=== PATIENT | female | born 1940 | race Caucasian/White ===

== ENCOUNTER 2016-11-06 11:32 | Emergency (ER) | payer MEDICARE ==
[~2016-11-06] VITALS: Ht 167.6 cm; Wt 85.0 kg
[~2016-11-06 11:32] MED LIST: HYDR-3288 PO; PERI8.6T PO
[2016-11-06 11:36] VITALS: BP 145/77; PULSE 84; RESP 16; TEMP 98.4; O2SAT 98
[2016-11-06 13:04] LABS: AUTOMATED NEUTROPHIL # 5.9 TH/MM3 (1.8-7.7); BASOPHIL # 0.1 TH/MM3 (0-0.2); BASOPHIL % 0.7 % (0.0-2.0); EOSINOPHIL # 0.4 TH/MM3 (0-0.4); HEMATOCRIT 42.1 % (35.0-46.0); HEMO FLAGS DIFF FINAL; LYMPH % 17.9 % (9.0-44.0); LYMPHOCYTE # 1.5 TH/MM3 (1.0-4.8); MEAN CELL VOLUME 90.1 FL (80.0-100.0); MEAN CORPUSCULAR HEMOGLOBIN 29.5 PG (27.0-34.0); MEAN CORPUSCULAR HGB CONC 32.7 % (32.0-36.0); MONO % 7.1 % (0.0-8.0); NEUT % 69.3 % (16.0-70.0); PLATELET COUNT 260 TH/MM3 (150-450); RED BLOOD COUNT 4.67 MIL/MM3 (4.00-5.30); RED CELL DISTRIBUTION WIDTH 14.3 % (11.6-17.2); WHITE BLOOD COUNT 8.5 TH/MM3 (4.0-11.0)
--- NOTE | 2016-11-06 13:08 | RADRPT ---
EXAM DATE/TIME: 11/06/2016 12:52 [facility] COMPARISON: CHEST SINGLE AP, January 19, 2016, 23:34. INDICATIONS : Right shoulder and chest pains x 4 weeks. MEDICAL HISTORY : None. SURGICAL HISTORY : None. ENCOUNTER: Initial ACUITY: 1 month PAIN SCORE: 9/10 LOCATION: Right chest FINDINGS: A single view of the chest demonstrates the lungs to be symmetrically aerated without evidence of mas s, infiltrate or effusion. The cardiomediastinal contours are unremarkable. Osseous structures are intact with mild to moderate scoliosis and mild degenerative change. CONCLUSION: No acute disease. Tony Hensley MD on November 06, 2016 at 13:06 Board Certified Radiologist. This report was verified electronically.
[2016-11-06 13:10] LABS: ANION GAP 8 MEQ/L (5-15); BICARBONATE 27.5 MEQ/L (21.0-32.0); BLOOD UREA NITROGEN 12 MG/DL (7-18); CHLORIDE 107 MEQ/L (98-107); GLOMERULAR FILTRATION RATE 75 ML/MIN (>89); POTASSIUM 3.5 MEQ/L (3.5-5.1); SODIUM (NA) 142 MEQ/L (136-145)
[2016-11-06 13:17] LABS: CREATINE KINASE 55 U/L (26-192)
--- NOTE | 2016-11-06 16:23 | RADRPT ---
EXAM DATE/TIME: 11/06/2016 16:04 [facility] COMPARISON: No previous studies available for comparison. INDICATIONS : Right shoulder pain, hurt 8 months ago. MEDICAL HISTORY : None. SURGICAL HISTORY : left shoulder surgery, torn ligament ENCOUNTER: Initial ACUITY: 1 day PAIN SCORE: 9/10 LOCATION: Right shoulder FINDINGS: Multiple view examination of the right shoulder demonstrates no evidence of fracture or dislocation. The acromioclavicular joint is maintained. There are mild degenerative changes in the glenohumeral j oint. There is normal range of motion between internal and external rotation. Bony mineralization is normal. CONCLUSION: Mild degenerative change in the glenohumeral joint. Tony Hensley MD on November 06, 2016 at 16:20 Board Certified Radiologist. This report was verified electronically.
[2016-11-06 16:24] LABS: AST (GOT) 20 U/L (15-37)
[2016-11-06 16:28] LABS: ALKALINE PHOSPHATASE 72 U/L (45-117); ALT (GPT) 19 U/L (10-53); INDIRECT BILIRUBIN 0.2 MG/DL (0.0-0.8); TOTAL BILIRUBIN ADULT 0.3 MG/DL (0.2-1.0)
[2016-11-06] MEDS ORDERED: ORPHENADRINE INJ 60 MG/2 ML AMP IM ONE (16:30)
[2016-11-06] MEDS ORDERED: KETOROLAC TROMETHAMINE 30 MG/ML (IVP) VIAL IM ONE (16:30)
[2016-11-06] MEDS ORDERED: CYCL5TAB PO (16:41)
[2016-11-06] MEDS ORDERED: MELO7.5T4 PO (16:41)
--- NOTE | 2016-11-06 16:41 | PD ---
HPI Chief Complaint: Medical Clearance Time Seen by Provider: 14:32 Travel History International Travel<30 days: No Contact w/Intl Traveler<30days: No Traveled to known affect area: No History of Present Illness HPI This is a 76-year-old female who has a history of prior torn ligament and frozen shoulder on the left side who presents to the emergency department with several weeks of increasing right shoulder pain. She says over the past several days she's been having severe pain in her right shoulder that radiates into her right chest and into her right arm, worse with movement, improved with rest. 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 She does feel like the pain is worse with movement. She denies any shortness of breath, abdominal pain or vomiting. She denies any injuries that she can recall. PFSH Past Medical History Heart Rhythm Problems: Yes (HX MURMUR) Cancer: No Cardiac Catheterization: No Cardiovascular Problems: No High Cholesterol: Yes Congestive Heart Failure: No Diabetes: No Diminished Hearing: No Endocrine: No Gastrointestinal Disorders: Yes Genitourinary: No Hypertension: No Immune Disorder: No Implanted Vascular Access Dvce: Yes Musculoskeletal: No Neurologic: Yes Psychiatric: No Reproductive: No Respiratory: No Past Surgical History Coronary Artery Bypass Graft: No Joint Replacement: No (BILATERAL KNEES) Other Surgery: Yes Social History Alcohol Use: Yes (SOCIAL) Tobacco Use: No Substance Use: No Allergies-Medications (Allergen,Severity, Reaction): Coded Allergies: acetaminophen (Unverified Allergy, Severe, VOMITING, 10/10/16) oxycodone (Unverified Allergy, Severe, VOMITING, 10/10/16) Uncoded Allergies: ANESTHETIC THAT STARTS WITH A P (Allergy, Severe, 08/08/11) Reported Meds & Prescriptions Reported Meds & Active Scripts Active Leidy-Colace (Sennosides-Docusate Sodium) 8.6-50 Mg Tab 2 Tab PO HS Silver (Hydrocodone-Acetaminophen) 7.5-325 mg Tab 1-2 Tab PO Q4H PRN Review of Systems Except as stated in HPI: all other systems reviewed are Neg Physical Exam Narrative GENERAL:Well appearing, no acute distress SKIN: Focused skin assessment warm and dry. HEAD: Atraumatic. Normocephalic. EYES: Pupils equal and round. No injection or drainage. ENT: Moist mucous membranes NECK: Trachea midline. CARDIOVASCULAR: Regular rate and rhythm. No murmur appreciated. 2+ bilateral radial pulses with normal capillary refill. RESPIRATORY: Clear to auscultation. Breath sounds equal bilaterally. GASTROINTESTINAL: Abdomen soft, non-tender, nondistended. MUSCULOSKELETAL: Some pain with Neer test and pain with internal rotation of the shoulder. NEUROLOGICAL: Awake and alert. No obvious cranial nerve deficits. Moving all extremities. PSYCHIATRIC: Appropriate mood and affect; insight and judgment normal. Data Data Last Documented VS Vital Signs Date Time Temp Pulse Resp B/P (MAP) Pulse Ox O2 Delivery O2 Flow Rate FiO2 11/06/16 11:36 98.4 84 16 145/77 (99) 98 Orders Orders Electrocardiogram (11/06/16 12:10) Complete Blood Count With Diff (11/06/16 12:16) Basic Metabolic Panel (Bmp) (11/06/16 12:16) Ckmb (Isoenzyme) Profile (11/06/16 12:16) Troponin I (11/06/16 12:16) Chest, Single Ap (11/06/16 12:16) Shoulder, Complete (>2vws) (11/06/16 ) Troponin I (11/06/16 14:49) Hepatic Functional Panel (11/06/16 14:49) Orphenadrine Inj (Norflex Inj) (11/06/16 16:30) Ketorolac Inj (Toradol Inj) (11/06/16 16:30) Labs Laboratory Tests Test 11/06/16 12:23 11/06/16 15:25 White Blood Count 8.5 TH/MM3 Red Blood Count 4.67 MIL/MM3 Hemoglobin 13.8 GM/DL Hematocrit 42.1 % Mean Corpuscular Volume 90.1 FL Mean Corpuscular Hemoglobin 29.5 PG Mean Corpuscular Hemoglobin Concent 32.7 % Red Cell Distribution Width 14.3 % Platelet Count 260 TH/MM3 Mean Platelet Volume 7.6 FL Neutrophils (%) (Auto) 69.3 % Lymphocytes (%) (Auto) 17.9 % Monocytes (%) (Auto) 7.1 % Eosinophils (%) (Auto) 5.0 % Basophils (%) (Auto) 0.7 % Neutrophils # (Auto) 5.9 TH/MM3 Lymphocytes # (Auto) 1.5 TH/MM3 Monocytes # (Auto) 0.6 TH/MM3 Eosinophils # (Auto) 0.4 TH/MM3 Basophils # (Auto) 0.1 TH/MM3 CBC Comment DIFF FINAL Differential Comment Blood Urea Nitrogen 12 MG/DL Creatinine 0.75 MG/DL Random Glucose 129 MG/DL Calcium Level 8.4 MG/DL Sodium Level 142 MEQ/L Potassium Level 3.5 MEQ/L Chloride Level 107 MEQ/L Carbon Dioxide Level 27.5 MEQ/L Anion Gap 8 MEQ/L Estimat Glomerular Filtration Rate 75 ML/MIN Total Creatine Kinase 55 U/L Troponin I LESS THAN 0.02 NG/ML LESS THAN 0.02 NG/ML Total Bilirubin 0.3 MG/DL Direct Bilirubin 0.1 MG/DL Indirect Bilirubin 0.2 MG/DL Aspartate Amino Transf (AST/SGOT) 20 U/L Alanine Aminotransferase (ALT/SGPT) 19 U/L Alkaline Phosphatase 72 U/L Total Protein 6.7 GM/DL Albumin 3.3 GM/DL MDM Medical Decision Making Medical Screen Exam Complete: Yes Emergency Medical Condition: Yes Interpretation(s) afebrile, no tachycardia, mild hypertension no leukocytosis electrolytes within normal limits troponin neg x2 lfts reassuring Last 24 hours Impressions Chest X-Ray 11/06/16 1216 Signed Impressions: Service Date/Time: Sunday, November 06, 2016 12:52 - CONCLUSION: No acute disease. Tony Hensley MD xray: degenerative change in the glenohumeral joint Differential Diagnosis Osteoarthritis, rotator cuff injury, acute coronary syndrome, choledocholithiasis Narrative Course This is a 76 year old female who presents to the emergency department with pain in her right shoulder. The pain is worse with movement and with rotator cuff testing. It appears to be musculoskeletal. She has a normal neurovascular exam. X-ray of the chest and shoulder are reassuring with some evidence of degenerative disease in the right shoulder. I did send a set of cardiac enzymes which was reassuring. I also checked her biliary labs given her recent cholecystectomy which were reassuring. I think the patient can be discharged with anti-inflammatories and muscle relaxers as needed and she should follow-up with orthopedics. Diagnosis Primary Impression: Shoulder pain, acute Qualified Codes: M25.511 - Pain in right shoulder Patient Instructions: General Instructions Additional Instructions: If you develop numbness, weakness or worsening or severe pain return to the emergency department. Follow up with an orthopedic doctor in 1-2 weeks for further evaluation and possible MRI. Med/Other Pt SpecificInfo: Prescription(s) given Scripts Cyclobenzaprine (Flexeril) 5 Mg Tab 5 MG PO TID for Muscle Spasm, #12 TAB 0 Refills Prov: Lucy Steiner MD 11/06/16 Meloxicam (Meloxicam) 7.5 Mg Tab 7.5 MG PO DAILY for Arthritis Pain for 10 Days, #10 TAB 0 Refills Prov: Lucy Steiner MD 11/06/16 Disposition: 01 DISCHARGE HOME Condition: Stable Lucy Steiner MD Nov 06, 2016 16:41
--- NOTE | 2016-11-07 21:56 | EKG ---
Date Performed: 11/06/2016 Time Performed: 12:14:42 PTAGE: 76 years EKG: Sinus rhythm POSSIBLE LEFT ATRIAL ENLARGEMENT BORDERLINE ECG PREVIOUS TRACING : 01/19/2016 23.02 Compared to prior tracing no significant change DOCTOR: Narayan Coon Interpretating Date/Time 11/07/2016 21:55:06
== END 2016-11-06 16:56 | disposition home or self-care (01) ==
LOC: NEPC 11:32
DX: M25.511 Pain in right shoulder (principal); R07.9 Chest pain, unspecified; E78.00 Pure hypercholesterolemia, unspecified; Z79.899 Other long term (current) drug therapy; Z88.6 Allergy status to analgesic agent; Z88.5 Allergy status to narcotic agent
CPT/HCPCS: 71010; 73030; 80048; 80076; 82550; 84484; 85025; 93005; 96372; 96374; 99285; J1885; J2360

== ENCOUNTER 2016-12-03 20:34 | Emergency (ER) | payer MEDICARE ==
[~2016-12-03 20:34] MED LIST changes: +CYCL5TAB PO; +MELO7.5T4 PO
[2016-12-03] MEDS ORDERED: IOHEXOL 350 MG/ML 10 ML VIAL (for RAD DIAG) IVCONTRAST ONE (20:35)
[2016-12-03 20:41] VITALS: BP 188/82; PULSE 73; RESP 16; TEMP 97.6; O2SAT 95
[2016-12-03] MEDS ORDERED: MORPHINE SULFATE 4 MG/ML INJ IV PUSH ONE (22:45)
[2016-12-03] MEDS ORDERED: SODIUM CHLORIDE 0.9% FLUSH 10 ML FLUSH IV FLUSH PRN (22:45)
[2016-12-03] MEDS ORDERED: ONDANSETRON HCL 4 MG/2 ML VIAL IVP ONE (22:45)
--- NOTE | 2016-12-03 22:52 | PD ---
HPI Chief Complaint: Bleeding Time Seen by Provider: 22:29 Travel History International Travel<30 days: No Contact w/Intl Traveler<30days: No Traveled to known affect area: No History of Present Illness HPI 76-year-old female presents the emergency department with sudden onset upper right quadrant abdominal pain approximately 3 hours after eating dinner at 4:30. Patient was sitting on the couch watching television when she has 9 out of 10 cramping sharp pain in the anterior right upper abdomen. Patient has had some nausea. No vomiting. Patient states chronic intermittent constipation after having her gallbladder last December. Patient has history of bleeding hemorrhoids which have never caused her pain or burning. Patient noted some hematuria without dysuria this evening after her abdominal pain. She denies fever, chest pain, or shortness of breath. No history of cardiac issues in the past. Patient is chronic arthritic complaints followed by Dr. Cooper her orthopedic. Patient does not take NSAIDs regularly. She takes no other medications, other than vitamins. Patient has allergies oxycodone, epidurals, acetaminophen, and an anesthetic that starts with a P. PFSH Past Medical History Heart Rhythm Problems: Yes (HX MURMUR) Cancer: No Cardiac Catheterization: No Cardiovascular Problems: No High Cholesterol: Yes Congestive Heart Failure: No Diabetes: No Diminished Hearing: No Endocrine: No Gastrointestinal Disorders: Yes Genitourinary: No Hypertension: No Immune Disorder: No Implanted Vascular Access Dvce: Yes Musculoskeletal: No Neurologic: Yes Psychiatric: No Reproductive: No Respiratory: No ?: Not Past Surgical History Coronary Artery Bypass Graft: No Hysterectomy: Yes Joint Replacement: No (BILATERAL KNEES) Other Surgery: Yes Social History Alcohol Use: Yes (SOCIAL) Tobacco Use: No Substance Use: No Allergies-Medications (Allergen,Severity, Reaction): Coded Allergies: acetaminophen (Unverified Allergy, Severe, VOMITING, 10/10/16) oxycodone (Unverified Allergy, Severe, VOMITING, 10/10/16) Uncoded Allergies: ANESTHETIC THAT STARTS WITH A P (Allergy, Severe, 08/08/11) epidural (Allergy, Severe, 12/03/16) Reported Meds & Prescriptions Reported Meds & Active Scripts Active Flexeril (Cyclobenzaprine HCl) 5 Mg Tab 5 Mg PO TID Meloxicam 7.5 Mg Tab 7.5 Mg PO DAILY 10 Days Leidy-Colace (Sennosides-Docusate Sodium) 8.6-50 Mg Tab 2 Tab PO HS [place] (Hydrocodone-Acetaminophen) 7.5-325 mg Tab 1-2 Tab PO Q4H PRN Review of Systems Except as stated in HPI: all other systems reviewed are Neg General / Constitutional: No: Fever, Chills Eyes: No: Visual changes HENT: No: Headaches Cardiovascular: No: Chest Pain or Discomfort Respiratory: No: Cough, Shortness of Breath, Wheezing Gastrointestinal: Positive: Nausea, Abdominal Pain, No: Vomiting, Diarrhea Genitourinary: Positive: Hematuria, No: Urgency, Frequency, Dysuria, Hesitancy , Dribbling, Incontinence, Pelvic Pain, Flank Pain, Discharge Musculoskeletal: No: Pain Skin: No Rash Neurologic: No: Weakness Psychiatric: No: Depression Endocrine: No: Polydipsia Hematologic/Lymphatic: No: Easy Bruising Physical Exam Narrative GENERAL: Patient appears in no acute distress. She is speaking in full sentences and pleasant. SKIN: Warm and dry. Normal color. Normal turgor. HEAD: Atraumatic. Normocephalic. EYES: Pupils equal and round. No scleral icterus. No injection or drainage. ENT: No nasal bleeding or discharge. Mucous membranes pink and moist. Pharynx is clear. Airway is patent. NECK: Trachea midline. Supple and nontender. CARDIOVASCULAR: Regular rate and rhythm. No murmurs gallops or rubs. RESPIRATORY: No accessory muscle use. Clear to auscultation. Breath sounds equal bilaterally. GASTROINTESTINAL: Patient is moderately obese. Abdomen soft, moderate localized tenderness in the upper anterior abdomen possibly related to a large ventral hernia, nondistended. The ventral hernia is on the aspect of the abdomen with bowel sounds present. It seemed somewhat firm and reproduces patient's tenderness with palpation. Hepatic and splenic margins not palpable. No CVA tenderness. MUSCULOSKELETAL: Extremities without clubbing, cyanosis, or edema. No obvious deformities. NEUROLOGICAL: Awake and alert. No obvious cranial nerve deficits. Motor grossly within normal limits. Five out of 5 muscle strength in the arms and legs. Normal speech. PSYCHIATRIC: Appropriate mood and affect; insight and judgment normal. Data Data Last Documented VS Vital Signs Date Time Temp Pulse Resp B/P (MAP) Pulse Ox O2 Delivery O2 Flow Rate FiO2 12/03/16 20:41 97.6 73 16 188/82 (117) 95 Room Air Orders Orders Complete Blood Count With Diff (12/03/16 22:43) Comprehensive Metabolic Panel (12/03/16 22:43) Lipase (12/03/16 22:43) Prothrombin Time / Inr (Pt) (12/03/16:43) Act Partial Throm Time (Ptt) (12/03/16 22:43) Urinalysis - C+S If Indicated (12/03/16 22:43) Ct Abd/Pel W Iv Contrast(Rout) (12/03/16 22:43) Iv Access Insert/Monitor (12/03/16 22:43) Ecg Monitoring (12/03/16 22:43) Oximetry (12/03/16 22:43) NPO (12/03/16 22:43) Morphine Inj (Morphine Inj) (12/03/16 22:45) Ondansetron Inj (Zofran Inj) (12/03/16 22:45) Sodium Chloride 0.9% Flush (Ns Flush) (12/03/16 22:45) Electrocardiogram (12/03/16:43) Ckmb (Isoenzyme) Profile (12/03/16:43) Troponin I (12/03/16 22:43) MDM Medical Decision Making Medical Screen Exam Complete: Yes Emergency Medical Condition: Yes Medical Record Reviewed: Yes Differential Diagnosis Abdominal pain. Biliary colic. Cardiac syndrome. Possible small bowel obstruction. Ventral hernia pain. Urinary tract infection. Renal colic. History of hemorrhoids. Narrative Course Patient is medically stable at time of exam. EKG and chest x-ray are ordered. Labs ordered including CBC, CMP, cardiac panel, lipase, and urinalysis. CT of the abdomen/pelvis is ordered with IV contrast. IV access is obtained patient is given 4 mg Zofran IV as well as 2 mg morphine IV. EKG shows sinus bradycardia without ST changes of significance. 2300 hrs. patient is discussed with Dr. Seals who assumes care of the patient and will determine final disposition. Condition: Stable Bakari Isaacs Dec 03, 2016 22:52
[2016-12-03 23:43] VITALS: BP 174/78; PULSE 60; RESP 16; O2SAT 96
[2016-12-03 23:46] LABS: AUTOMATED NEUTROPHIL # 6.8 TH/MM3 (1.8-7.7); BASOPHIL # 0.1 TH/MM3 (0-0.2); BASOPHIL % 0.6 % (0.0-2.0); EOSINOPHIL # 0.4 TH/MM3 (0-0.4); EOSINOPHIL % 4.1 % (0.0-4.0); HEMATOCRIT 40.9 % (35.0-46.0); HEMO FLAGS DIFF FINAL; LYMPH % 25.2 % (9.0-44.0); LYMPHOCYTE # 2.7 TH/MM3 (1.0-4.8); MEAN CELL VOLUME 89.2 FL (80.0-100.0); MEAN CORPUSCULAR HEMOGLOBIN 29.2 PG (27.0-34.0); MEAN CORPUSCULAR HGB CONC 32.7 % (32.0-36.0); MONO % 7.4 % (0.0-8.0); NEUT % 62.7 % (16.0-70.0); PLATELET COUNT 288 TH/MM3 (150-450); RED BLOOD COUNT 4.59 MIL/MM3 (4.00-5.30); RED CELL DISTRIBUTION WIDTH 14.2 % (11.6-17.2); WHITE BLOOD COUNT 10.9 TH/MM3 (4.0-11.0)
[2016-12-03 23:48] LABS: BLOOD, URINE NEG (NEG); COMMENT (UR) CULT NOT INDICATED; CULTURE IF INDICATED CULT NOT INDICATED; GLUCOSE,URINE NEG (NEG); KETONE, URINE NEG (NEG); NITRITE,URINE NEG (NEG); SQUAMOUS EPITHELIAL CELL URINE 4 /hpf (0-5); URINE COLOR YELLOW (YELLW/STRAW)
[2016-12-03 23:59] LABS: ALT (GPT) 15 U/L (10-53); ANION GAP 7 MEQ/L (5-15); APTT (PATIENT) 25.5 SEC (24.3-30.1); AST (GOT) 17 U/L (15-37); BICARBONATE 28.9 MEQ/L (21.0-32.0); BLOOD UREA NITROGEN 15 MG/DL (7-18); CHLORIDE 105 MEQ/L (98-107); GLOMERULAR FILTRATION RATE 87 ML/MIN (>89); INTERNATIONAL NORMALIZED RATIO 0.9 RATIO; POTASSIUM 3.6 MEQ/L (3.5-5.1); PROTHROMBIN TIME - PATIENT 10.2 SEC (9.8-11.6); SODIUM (NA) 141 MEQ/L (136-145)
[2016-12-04 00:03] LABS: ALKALINE PHOSPHATASE 84 U/L (45-117); TOTAL BILIRUBIN ADULT 0.2 MG/DL (0.2-1.0)
[2016-12-04 00:05] LABS: CREATINE KINASE 34 U/L (26-192)
[2016-12-04 00:19] VITALS: RESP 16
--- NOTE | 2016-12-04 02:02 | RADRPT ---
EXAM DATE/TIME: 12/04/2016 01:21 [facility] COMPARISON: No previous studies available for comparison. INDICATIONS : Abdomen pain with blood in stool. IV CONTRAST: 95 cc Omnipaque 350 (iohexol) IV ORAL CONTRAST: No oral contrast ingested. RADIATION DOSE: 18.08 CTDIvol (mGy) MEDICAL HISTORY : None SURGICAL HISTORY : Hysterectomy. Cholecystectomy. ENCOUNTER: Initial ACUITY: 2 days PAIN SCALE: 4/10 LOCATION: Bilateral abdomen TECHNIQUE: Volumetric scanning of the abdomen and pelvis was performed. Using automated exposure control and ad justment of the mA and/or kV according to patient size, radiation dose was kept as low as reasonably achievable to obtain optimal diagnostic quality images. DICOM format image data is available electro nically for review and comparison. FINDINGS: LOWER LUNGS: The visualized lower lungs are clear. LIVER: Homogeneous density without lesion. There is no dilation of the biliary tree. Gallbladder surgically absent.. SPLEEN: Normal size without lesion. PANCREAS: Within normal limits. KIDNEYS: Normal in size and shape. There is no mass, stone or hydronephrosis. ADRENAL GLANDS: Within normal limits. VASCULAR: There is no aortic aneurysm. BOWEL/MESENTERY: The stomach, small bowel, and colon demonstrate no acute abnormality. There is no free intraperitone al air or fluid. ABDOMINAL WALL: There is a moderately large abdominal wall hernia just above the level of the umbilicus in the right paramedian abdomen contains primarily fat however also a knuckle of the adjacent transverse colon. Th ere is mild induration of the fat contents of the hernia. RETROPERITONEUM: There is no lymphadenopathy. BLADDER: No wall thickening or mass. REPRODUCTIVE: Uterus surgically absent. No evidence of pelvic mass or free fluid. INGUINAL: There is no lymphadenopathy or hernia. MUSCULOSKELETAL: Within normal limits for patient age. CONCLUSION: Supraumbilical hernia containing fat and a knuckle of transverse colon. Mild indurative changes in th e hernia sac Son Saucedo MD on December 04, 2016 at 1:55 Board Certified Radiologist. This report was verified electronically.
[2016-12-04] MEDS ORDERED: ZOFR4TAB3 SL (03:11)
--- NOTE | 2016-12-04 03:12 | PD ---
Physical Exam Date Seen by Provider: Dec 04, 2016 Time Seen by Provider: 01:00 Narrative GENERAL: Well developed well-nourished female in no acute distress no respiratory distress SKIN: Warm and dry. HEAD: Normocephalic. EYES: No scleral icterus. No injection or drainage. NECK: Supple, trachea midline. No JVD or lymphadenopathy. CARDIOVASCULAR: Regular rate and rhythm without murmurs, gallops, or rubs. RESPIRATORY: Breath sounds equal bilaterally. No accessory muscle use. GASTROINTESTINAL: Abdomen soft, non-tender, readily reducible ventral hernia, nondistended. MUSCULOSKELETAL: No cyanosis, or edema. BACK: Nontender without obvious deformity. No CVA tenderness. Data Data Last Documented VS Vital Signs Date Time Temp Pulse Resp B/P (MAP) Pulse Ox O2 Delivery O2 Flow Rate FiO2 12/04/16 03:23 155/73 (100) 98 12/04/16 00:19 16 12/03/16 23:43 60 Room Air 12/03/16 20:41 97.6 Orders Orders Complete Blood Count With Diff (12/03/16 22:43) Comprehensive Metabolic Panel (12/03/16 22:43) Lipase (12/03/16 22:43) Prothrombin Time / Inr (Pt) (12/03/16 22:43) Act Partial Throm Time (Ptt) (12/03/16 22:43) Urinalysis - C+S If Indicated (12/03/16 22:43) Ct Abd/Pel W Iv Contrast(Rout) (12/03/16 22:43) Iv Access Insert/Monitor (12/03/16 22:43) Ecg Monitoring (12/03/16 22:43) Oximetry (12/03/16 22:43) NPO (12/03/16 22:43) Morphine Inj (Morphine Inj) (12/03/16 22:45) Ondansetron Inj (Zofran Inj) (12/03/16 22:45) Sodium Chloride 0.9% Flush (Ns Flush) (12/03/16 22:45) Electrocardiogram (12/03/16 22:43) Ckmb (Isoenzyme) Profile (12/03/16 22:43) Troponin I (12/03/16 22:43) Iohexol 350 Inj (Omnipaque 350 Inj) (12/03/16 20:35) Labs Laboratory Tests Test 12/03/16 23:00 12/03/16 23:30 White Blood Count 10.9 TH/MM3 Red Blood Count 4.59 MIL/MM3 Hemoglobin 13.4 GM/DL Hematocrit 40.9 % Mean Corpuscular Volume 89.2 FL Mean Corpuscular Hemoglobin 29.2 PG Mean Corpuscular Hemoglobin Concent 32.7 % Red Cell Distribution Width 14.2 % Platelet Count 288 TH/MM3 Mean Platelet Volume 7.1 FL Neutrophils (%) (Auto) 62.7 % Lymphocytes (%) (Auto) 25.2 % Monocytes (%) (Auto) 7.4 % Eosinophils (%) (Auto) 4.1 % Basophils (%) (Auto) 0.6 % Neutrophils # (Auto) 6.8 TH/MM3 Lymphocytes # (Auto) 2.7 TH/MM3 Monocytes # (Auto) 0.8 TH/MM3 Eosinophils # (Auto) 0.4 TH/MM3 Basophils # (Auto) 0.1 TH/MM3 CBC Comment DIFF FINAL Differential Comment Prothrombin Time 10.2 SEC Prothromb Time International Ratio 0.9 RATIO Activated Partial Thromboplast Time 25.5 SEC Blood Urea Nitrogen 15 MG/DL Creatinine 0.66 MG/DL Random Glucose 95 MG/DL Total Protein 7.3 GM/DL Albumin 3.5 GM/DL Calcium Level 9.1 MG/DL Alkaline Phosphatase 84 U/L Aspartate Amino Transf (AST/SGOT) 17 U/L Alanine Aminotransferase (ALT/SGPT) 15 U/L Total Bilirubin 0.2 MG/DL Sodium Level 141 MEQ/L Potassium Level 3.6 MEQ/L Chloride Level 105 MEQ/L Carbon Dioxide Level 28.9 MEQ/L Anion Gap 7 MEQ/L Estimat Glomerular Filtration Rate 87 ML/MIN Total Creatine Kinase 34 U/L Troponin I LESS THAN 0.02 NG/ML Lipase 303 U/L Urine Color YELLOW Urine Turbidity HAZY Urine pH 6.0 Urine Specific Chest[place] 1.022 Urine Protein NEG mg/dL Urine Glucose (UA) NEG mg/dL Urine Ketones NEG mg/dL Urine Occult Blood NEG Urine Nitrite NEG Urine Bilirubin NEG Urine Urobilinogen LESS THAN 2.0 MG/DL Urine Leukocyte Esterase TRACE Urine RBC LESS THAN 1 /hpf Urine WBC 2 /hpf Urine Squamous Epithelial Cells 4 /hpf Microscopic Urinalysis Comment CULT NOT INDICATED [facility] Medical Record Reviewed: Yes Supervised Visit with BART: Yes Interpretation(s) CBC & BMP Diagram 12/03/16 23:00 Total Protein 7.3, Albumin 3.5, Calcium Level 9.1, Alkaline Phosphatase 84, Aspartate Amino Transf (AST/SGOT) 17, Alanine Aminotransferase (ALT/SGPT) 15, Total Bilirubin 0.2 Vital Signs Date Time Temp Pulse Resp B/P (MAP) Pulse Ox O2 Delivery O2 Flow Rate FiO2 12/04/16 03:23 155/73 (100) 98 12/04/16 00:19 16 12/03/16 23:43 60 16 174/78 (110) 96 Room Air 12/03/16 20:41 97.6 73 16 188/82 (117) 95 Room Air Troponin I less than 0.02, not elevated EKG sinus rhythm no acute ST elevation or injury pattern or ectopy noted Differential Diagnosis Abdominal pain, incarcerated hernia, pancreatitis, gastritis, peptic ulcer disease, colitis, hematuria, UTI, bladder mass, hemorrhoid related bleeding, fissure Narrative Course Patient with history of cholecystectomy December 2015 without follow-up with surgeon after noting ventral hernia with frequent recommendation by providers to go to to surgeon for surgical repair of ventral incisional hernia. Patient with increasing episodes of distention and abdominal pain with increased abdominal pain bandlike in nature this evening. With nausea after eating. Patient with history of rectal bleeding secondary to hemorrhoidal bleeding and noted some bleeding in the urine this evening said decided to come to the emergency room for evaluation. Currently patient has no pain or pain is sporadic and intermittent and minutes in duration. Abdomen here soft nontender. Patient was nontender abdomen on exam Labs ordered and EKG performed without acute injury pattern and cardiac enzymes within normal limits patient presently with no pain and readily reducible ventral hernia. He should states discussed with on-call general surgeon who has reviewed the imaging study online and chills patient if asymptomatic at this time with readily reducible ventral incisional hernia is stable for outpatient management. This is shared with the patient who is content and happy with this plan and continues to deny any pain and again ventral incisional hernia remains readily reducible. Physician Communication Physician Communication Patient's case and imaging study discussed with on-call general surgeon Dr. Frias who has reviewed the study and recommends close follow-up for outpatient repair and patient may be seen by him or her previous managing surgeon who did her cholecystectomy 2015. Diagnosis Primary Impression: Ventral hernia Qualified Codes: K43.9 - Ventral hernia without obstruction or gangrene Referrals: Shakeel Frias MD 1 day call office to schedule appointment this week General Surgeon call for appointment May follow up with your prior surgeon Dr Curran Patient Instructions: Narcotic given in the ED, General Instructions Additional Instruction: Follow clear liquid diet for next 12-24 hours; advance diet as tolerated bland/ Elva diet then regular diet avoiding fried and fatty foods Follow-up with surgery: Office in a.m. to schedule follow-up appointment this week Return to the emergency department for any concerns or change in condition-- recurrent pain difficulty with reducing hernia or any concerns Takes Zofran as prescribed as needed for nausea and/or vomiting Med/Other Pt SpecificInfo: Prescription(s) given Scripts Ondansetron Odt (Zofran Odt) 4 Mg Tab 4 MG SL Q6HR Y for Nausea/Vomiting, #10 TAB 0 Refills Prov: Deidre Seals MD 12/04/16 Disposition: 01 DISCHARGE HOME Condition: Stable Deidre Seals MD Dec 04, 2016 03:12
[2016-12-04 03:23] VITALS: BP 155/73
--- NOTE | 2016-12-04 10:05 | EKG ---
Date Performed: 12/03/2016 Time Performed: 23:25:04 PTAGE: 76 years EKG: SINUS BRADYCARDIA BORDERLINE ECG Compared to prior tracing no significant change DOCTOR: Joshua Clay Interpretating Date/Time 12/04/2016 10:03:52
== END 2016-12-04 03:30 | disposition home or self-care (01) ==
LOC: NEPC 20:34
DX: K43.9 Ventral hernia without obstruction or gangrene (principal); R00.1 Bradycardia, unspecified
CPT/HCPCS: 74177; 80053; 81001; 82550; 83690; 84484; 85025; 85610; 85730; 93005; 96374; 96375; 99285; J2270; J2405; Q9967

== ENCOUNTER 2017-01-04 15:25 | Emergency (ER) | payer MEDICARE ==
[~2017-01-04] VITALS: Ht 167.6 cm; Wt 90.0 kg
[~2017-01-04 15:25] MED LIST changes: +MELO7.5T27 PO; -MELO7.5T4 PO; +ZOFR4TAB3 SL
[2017-01-04 15:26] VITALS: BP 214/98; PULSE 72; RESP 18; TEMP 98.3; O2SAT 98
[2017-01-04] MEDS ORDERED: SODIUM CHLOR 0.9% 1000 ML INJ 1,000 ML IV SCH (16:26)
[2017-01-04] MEDS ORDERED: ONDANSETRON HCL 4 MG/2 ML VIAL IVP ONE (16:30)
[2017-01-04] MEDS ORDERED: SODIUM CHLORIDE 0.9% FLUSH 10 ML FLUSH IV FLUSH PRN (16:30)
[2017-01-04] MEDS ORDERED: MORPHINE SULFATE 4 MG/ML INJ IV PUSH ONE (16:30)
--- NOTE | 2017-01-04 16:35 | PD ---
HPI Chief Complaint: Lump, Cyst, Hernia Time Seen by Provider: 16:06 Travel History International Travel<30 days: No Contact w/Intl Traveler<30days: No Traveled to known affect area: No History of Present Illness HPI The patient is a 76-year-old female who presents to the emergency department for abdominal pain. The patient states she developed abdominal pain [place] the mall[place] The abdominal pain is initially lower in the abdomen, radiating up to the epigastrium. The patient has a history of a ventral hernia that was supposed to be repaired, however, her surgeon, Dr. Curran, wanted to wait until she had a colonoscopy. The patient states she waited too long to have the colonoscopy and has not had the surgery performed to fix a ventral hernia. The patient was advised by her surgeon to come to the emergency department immediately if she has pain. The pain has been intermittent, is currently resolved, but is occasionally worse with sitting upright. She also complains of occasional abdominal distention. She denies any nausea, vomiting, or diarrhea. She denies any associated dysuria, frequency , or urgency. Symptoms are moderate, intermittent, there are no current alleviating or exacerbating factors. PFSH Past Medical History Heart Rhythm Problems: Yes (HX MURMUR) Cancer: No Cardiac Catheterization: No Cardiovascular Problems: No High Cholesterol: Yes Congestive Heart Failure: No Diabetes: No Diminished Hearing: No Endocrine: No Gastrointestinal Disorders: Yes Genitourinary: No Hypertension: No Immune Disorder: No Implanted Vascular Access Dvce: Yes Musculoskeletal: No Neurologic: Yes Psychiatric: No Reproductive: No Respiratory: No Past Surgical History Cholecystectomy: Yes Coronary Artery Bypass Graft: No Hysterectomy: Yes Other Surgery: Yes Social History Alcohol Use: No Tobacco Use: No Substance Use: No Allergies-Medications (Allergen,Severity, Reaction): Coded Allergies: acetaminophen (Unverified Allergy, Severe, VOMITING, 10/10/16) oxycodone (Unverified Allergy, Severe, VOMITING, 10/10/16) Uncoded Allergies: ANESTHETIC THAT STARTS WITH A P (Allergy, Severe, 08/08/11) epidural (Allergy, Severe, 12/03/16) Reported Meds & Prescriptions Reported Meds & Active Scripts Active Zofran Odt (Ondansetron Odt) 4 Mg Tab 4 Mg SL Q6HR PRN Flexeril (Cyclobenzaprine HCl) 5 Mg Tab 5 Mg PO TID Meloxicam 7.5 Mg Tab 7.5 Mg PO DAILY 10 Days [place] (Hydrocodone-Acetaminophen) 7.5-325 mg Tab 1-2 Tab PO Q4H PRN Review of Systems Except as stated in HPI: all other systems reviewed are Neg General / Constitutional: No: Fever HENT: No: Lightheadedness Cardiovascular: No: Chest Pain or Discomfort Respiratory: No: Shortness of Breath Gastrointestinal: Positive: Abdominal Pain, No: Nausea, Vomiting, Diarrhea Genitourinary: No: Dysuria Physical Exam Narrative GENERAL: Awake, alert, pleasant 76 year-old female who appears her stated age and is in no acute respiratory distress. SKIN: Focused skin assessment warm/dry. HEAD: Atraumatic. Normocephalic. EYES: Pupils equal and round. No scleral icterus. No injection or drainage. ENT: No nasal bleeding or discharge. Mucous membranes pink and moist. NECK: Trachea midline. No JVD. CARDIOVASCULAR: Regular rate and rhythm. No murmur appreciated. RESPIRATORY: No accessory muscle use. Clear to auscultation. Breath sounds equal bilaterally. GASTROINTESTINAL: Abdomen soft, midline to right upper quadrant ventral hernia noted appears reducible. There is no guarding or rigidity. No overlying erythema. MUSCULOSKELETAL: No obvious deformities. No clubbing. No cyanosis. No edema. NEUROLOGICAL: Awake and alert. No obvious cranial nerve deficits. Motor grossly within normal limits. Normal speech. PSYCHIATRIC: Appropriate mood and affect; insight and judgment normal. Data Data Last Documented VS Vital Signs Date Time Temp Pulse Resp B/P (MAP) Pulse Ox O2 Delivery O2 Flow Rate FiO2 01/04/17 15:39 18 01/04/17 15:26 98.3 72 214/98 (136) 98 Orders Orders Complete Blood Count With Diff (01/04/17 16:26) Comprehensive Metabolic Panel (01/04/17 16:26) Lipase (01/04/17 16:26) Lactic Acid (01/04/17 16:26) Urinalysis - C+S If Indicated (01/04/17 16:26) Ct Abd/Pel W/O Iv Contrast (01/04/17 16:26) Iv Access Insert/Monitor (01/04/17 16:26) Ecg Monitoring (01/04/17 16:) Oximetry (01/04/17 16:26) Morphine Inj (Morphine Inj) (01/04/17 16:30) Ondansetron Inj (Zofran Inj) (01/04/17 16:30) Sodium Chlor 0.9% 1000 Ml Inj (Ns 1000 M (01/04/17 16:26) Sodium Chloride 0.9% Flush (Ns Flush) (01/04/17 16:30) Electrocardiogram (01/04/17 16:26) Labs Laboratory Tests Test 01/04/17 16:37 White Blood Count 8.9 TH/MM3 Red Blood Count 4.46 MIL/MM3 Hemoglobin 13.3 GM/DL Hematocrit 39.8 % Mean Corpuscular Volume 89.3 FL Mean Corpuscular Hemoglobin 29.8 PG Mean Corpuscular Hemoglobin Concent 33.4 % Red Cell Distribution Width 14.3 % Platelet Count 276 TH/MM3 Mean Platelet Volume 7.6 FL Neutrophils (%) (Auto) 55.3 % Lymphocytes (%) (Auto) 29.7 % Monocytes (%) (Auto) 8.2 % Eosinophils (%) (Auto) 5.8 % Basophils (%) (Auto) 1.0 % Neutrophils # (Auto) 4.9 TH/MM3 Lymphocytes # (Auto) 2.6 TH/MM3 Monocytes # (Auto) 0.7 TH/MM3 Eosinophils # (Auto) 0.5 TH/MM3 Basophils # (Auto) 0.1 TH/MM3 CBC Comment DIFF FINAL Differential Comment Urine Color LIGHT-YELLOW Urine Turbidity CLEAR Urine pH 6.0 Urine Specific [place] 1.012 Urine Protein NEG mg/dL Urine Glucose (UA) NEG mg/dL Urine Ketones NEG mg/dL Urine Occult Blood NEG Urine Nitrite NEG Urine Bilirubin NEG Urine Urobilinogen LESS THAN 2.0 MG/DL Urine Leukocyte Esterase NEG Urine WBC 1 /hpf Urine Squamous Epithelial Cells 2 /hpf Urine Mucus FEW /lpf Microscopic Urinalysis Comment CULT NOT INDICATED MDM Medical Decision Making Medical Screen Exam Complete: Yes Emergency Medical Condition: Yes Medical Record Reviewed: Yes Differential Diagnosis Differential diagnosis includes incarcerated hernia, strangulated hernia, reducible ventral hernia, pancreatitis, diverticulitis, mesenteric ischemia. Narrative Course IV was established, labs are drawn and sent, and the patient was placed on cardiac telemetry monitoring and continuous pulse oximetry monitoring. EKG was ordered and interpreted. The patient was administered morphine, Zofran, and IV fluids. CT of the abdomen and pelvis was ordered to evaluate for possible strangulated/incarcerated hernia. I discussed the patient with her general surgeon, Dr. Curran, at 5 PM. He is aware that the patient is in the emergency department. If the CT of the abdomen and pelvis is negative, the patient is advised to follow-up with her cook chief as scheduled for outpatient colonoscopy so she can have the hernia repaired. If the CT is positive, Dr. Curran will be notified. The patient was signed out at 5:10 PM. Diagnosis Primary Impression: Abdominal pain Qualified Codes: R10.84 - Generalized abdominal pain Condition: Stable Bala Minor MD Jan 04, 2017 16:35
[2017-01-04 16:50] LABS: AUTOMATED NEUTROPHIL # 4.9 TH/MM3 (1.8-7.7); BASOPHIL # 0.1 TH/MM3 (0-0.2); EOSINOPHIL # 0.5 TH/MM3 (0-0.4); EOSINOPHIL % 5.8 % (0.0-4.0); HEMATOCRIT 39.8 % (35.0-46.0); HEMO FLAGS DIFF FINAL; LYMPH % 29.7 % (9.0-44.0); LYMPHOCYTE # 2.6 TH/MM3 (1.0-4.8); MEAN CELL VOLUME 89.3 FL (80.0-100.0); MEAN CORPUSCULAR HEMOGLOBIN 29.8 PG (27.0-34.0); MEAN CORPUSCULAR HGB CONC 33.4 % (32.0-36.0); MONO % 8.2 % (0.0-8.0); NEUT % 55.3 % (16.0-70.0); PLATELET COUNT 276 TH/MM3 (150-450); RED BLOOD COUNT 4.46 MIL/MM3 (4.00-5.30); RED CELL DISTRIBUTION WIDTH 14.3 % (11.6-17.2); WHITE BLOOD COUNT 8.9 TH/MM3 (4.0-11.0)
[2017-01-04 17:04] LABS: BLOOD, URINE NEG (NEG); COMMENT (UR) CULT NOT INDICATED; CULTURE IF INDICATED CULT NOT INDICATED; GLUCOSE,URINE NEG (NEG); KETONE, URINE NEG (NEG); MUCUS URINE FEW /lpf (OCC); NITRITE,URINE NEG (NEG); SQUAMOUS EPITHELIAL CELL URINE 2 /hpf (0-5); URINE COLOR LIGHT-YELLOW (YELLW/STRAW)
[2017-01-04 17:14] LABS: ALT (GPT) 25 U/L (10-53); ANION GAP 8 MEQ/L (5-15); AST (GOT) 20 U/L (15-37); BLOOD UREA NITROGEN 11 MG/DL (7-18); CHLORIDE 102 MEQ/L (98-107); GLOMERULAR FILTRATION RATE 70 ML/MIN (>89); POTASSIUM 3.7 MEQ/L (3.5-5.1); SODIUM (NA) 140 MEQ/L (136-145)
[2017-01-04 17:17] LABS: ALKALINE PHOSPHATASE 87 U/L (45-117); TOTAL BILIRUBIN ADULT 0.3 MG/DL (0.2-1.0)
--- NOTE | 2017-01-04 17:37 | RADRPT ---
EXAM DATE/TIME: 01/04/2017 17:20 [facility] COMPARISON: CT ABDOMEN & PELVIS W CONTRAST, December 04, 2016, 1:21. INDICATIONS : Patient complains of abdominal pain. ORAL CONTRAST: No oral contrast ingested. RADIATION DOSE: 15.99 CTDIvol (mGy) MEDICAL HISTORY : None Hernia last year. SURGICAL HISTORY : Cholecystectomy. Hysterectomy. ENCOUNTER: Initial ACUITY: 1 day PAIN SCALE: 8/10 LOCATION: abdomen TECHNIQUE: Volumetric scanning of the abdomen and pelvis was performed. Using automated exposure control and ad justment of the mA and/or kV according to patient size, radiation dose was kept as low as reasonably achievable to obtain optimal diagnostic quality images. DICOM format image data is available electro nically for review and comparison. FINDINGS: LOWER LUNGS: The visualized lower lungs are clear. LIVER: Homogeneous density without lesion. There is no dilation of the biliary tree. Patient is status post cholecystectomy SPLEEN: Normal size without lesion. PANCREAS: Within normal limits. KIDNEYS: Normal in size and shape. There is no mass, stone, or hydronephrosis. ADRENAL GLANDS: Within normal limits. VASCULAR: There is no aortic aneurysm. BOWEL/MESENTERY: The stomach, small bowel, and colon demonstrate no acute abnormality. There is no free intraperitone al air or fluid. Small paraesophageal hernia. ABDOMINAL WALL: Anterior abdominal wall hernias identified just above the umbilicus measuring approximately 9.7 cm in the transverse dimension. This only contains fat but there is some induration of the fat possibly re presenting ischemic changes. RETROPERITONEUM: There is no lymphadenopathy. BLADDER: No wall thickening or mass. REPRODUCTIVE: Status post hysterectomy. INGUINAL: There is no lymphadenopathy or hernia. MUSCULOSKELETAL: Mild levoscoliosis of the lumbar spine with associated degenerative changes. CONCLUSION: 1. Large, stable 9.7 cm anterior abdominal wall hernia just above the umbilicus. 2. The hernia only contains fat but the fat show some induration which may represent some degree of f atty ischemia. This could explain abdominal pain if the patient has point tenderness just above the u mbilicus. 3. Postsurgical changes including cholecystectomy and hysterectomy. 4. Small paraesophageal hiatal hernia Juan Manuel Awan MD on January 04, 2017 at 17:28 Board Certified Radiologist. This report was verified electronically.
--- NOTE | 2017-01-04 18:43 | PD ---
Data Data Last Documented VS Vital Signs Date Time Temp Pulse Resp B/P (MAP) Pulse Ox O2 Delivery O2 Flow Rate FiO2 01/04/17 15:39 18 01/04/17 15:26 98.3 72 214/98 (136) 98 Orders Orders Complete Blood Count With Diff (01/04/17 16:26) Comprehensive Metabolic Panel (01/04/17 16:) Lipase (01/04/17 16:) Lactic Acid (01/04/17:) Urinalysis - C+S If Indicated (01/04/17 16:) Ct Abd/Pel W/O Iv Contrast (01/04/17:) Iv Access Insert/Monitor (01/04/17) Ecg Monitoring (01/04/17) Oximetry (01/04/17) Morphine Inj (Morphine Inj) (01/04/17 16:30) Ondansetron Inj (Zofran Inj) (01/04/17 16:30) Sodium Chlor 0.9% 1000 Ml Inj (Ns 1000 M (01/04/17 16:26) Sodium Chloride 0.9% Flush (Ns Flush) (01/04/17 16:30) Electrocardiogram (01/04/17 16:) Labs Laboratory Tests Test 01/04/17 16:37 White Blood Count 8.9 TH/MM3 Red Blood Count 4.46 MIL/MM3 Hemoglobin 13.3 GM/DL Hematocrit 39.8 % Mean Corpuscular Volume 89.3 FL Mean Corpuscular Hemoglobin 29.8 PG Mean Corpuscular Hemoglobin Concent 33.4 % Red Cell Distribution Width 14.3 % Platelet Count 276 TH/MM3 Mean Platelet Volume 7.6 FL Neutrophils (%) (Auto) 55.3 % Lymphocytes (%) (Auto) 29.7 % Monocytes (%) (Auto) 8.2 % Eosinophils (%) (Auto) 5.8 % Basophils (%) (Auto) 1.0 % Neutrophils # (Auto) 4.9 TH/MM3 Lymphocytes # (Auto) 2.6 TH/MM3 Monocytes # (Auto) 0.7 TH/MM3 Eosinophils # (Auto) 0.5 TH/MM3 Basophils # (Auto) 0.1 TH/MM3 CBC Comment DIFF FINAL Differential Comment Urine Color LIGHT-YELLOW Urine Turbidity CLEAR Urine pH 6.0 Urine Specific [place] 1.012 Urine Protein NEG mg/dL Urine Glucose (UA) NEG mg/dL Urine Ketones NEG mg/dL Urine Occult Blood NEG Urine Nitrite NEG Urine Bilirubin NEG Urine Urobilinogen LESS THAN 2.0 MG/DL Urine Leukocyte Esterase NEG Urine WBC 1 /hpf Urine Squamous Epithelial Cells 2 /hpf Urine Mucus FEW /lpf Microscopic Urinalysis Comment CULT NOT INDICATED Blood Urea Nitrogen 11 MG/DL Creatinine 0.80 MG/DL Random Glucose 88 MG/DL Total Protein 7.0 GM/DL Albumin 3.4 GM/DL Calcium Level 9.0 MG/DL Alkaline Phosphatase 87 U/L Aspartate Amino Transf (AST/SGOT) 20 U/L Alanine Aminotransferase (ALT/SGPT) 25 U/L Total Bilirubin 0.3 MG/DL Sodium Level 140 MEQ/L Potassium Level 3.7 MEQ/L Chloride Level 102 MEQ/L Carbon Dioxide Level 30.0 MEQ/L Anion Gap 8 MEQ/L Estimat Glomerular Filtration Rate 70 ML/MIN Lactic Acid Level 0.7 mmol/L Lipase 223 U/L MDM Supervised Visit with BART: No Narrative Course The patient was initially evaluated by the previous provider and signed out to me at the beginning of my shift pending labs, CT abdomen pelvis, and disposition. See his note for further details. Briefly this is a 76-year-old female who had a cholecystectomy performed in [place] [address] Curran. After the procedure she developed a ventral hernia. Today she presented to the emergency department with extreme pain at the site of the hernia. This hernia was easily reducible by the previous provider. CBC is unremarkable. CMP is unremarkable. Lactic acid is 0.7. The patient was provided a dose of morphine by the previous provider. On my exam she is resting comfortably. She does have a large ventral supraumbilical abdominal wall hernia that is easily reducible, however slightly tender. CT abdomen pelvis: CONCLUSION: 1. Large, stable 9.7 cm anterior abdominal wall hernia just above the umbilicus. 2. The hernia only contains fat but the fat show some induration which may represent some degree of fatty ischemia. This could explain abdominal pain if the patient has point tenderness just above the umbilicus. 3. Postsurgical changes including cholecystectomy and hysterectomy. 4. Small paraesophageal hiatal hernia Case discussed with the patient's general surgeon Dr. Curran who tells me that he has seen this patient in the past for her ventral hernia. His plan was to have her have a colonoscopy to rule out a colon cancer performed appearing the hernia. He was made aware CT findings and patient presentation. Today the hernia is easily reducible. He again would like the patient had a colonoscopy as an outpatient to rule out colon cancer prior to performing ventral hernia repair. I discussed this plan with the patient who states that she has been trying to obtain a GI appointment, however she has not been able to schedule one until January 23. Again she is resting comfortably and her hernia is easily reducible. She is stable for discharge home with outpatient follow-up. She was informed on when to return to the emergency department. She verbalizes understanding and agreement with plan. Diagnosis Primary Impression: Ventral hernia Qualified Codes: K43.9 - Ventral hernia without obstruction or gangrene Referrals: Tony Curran MD 3 days Chocolatier 3 days Additional Instruction: Follow-up with your crisis mental health therapist for colonoscopy. After colonoscopy is performed, follow-up with surgeon Dr. Curran. Return to the emergency department for worsening symptoms or any other concerns as discussed. Disposition: 01 DISCHARGE HOME Condition: Stable Polo Paez MD Jan 04, 2017 18:43
== END 2017-01-04 19:43 | disposition home or self-care (01) ==
LOC: NEPD 15:25
DX: K43.9 Ventral hernia without obstruction or gangrene (principal); K44.9 Diaphragmatic hernia without obstruction or gangrene; E78.00 Pure hypercholesterolemia, unspecified; Z79.899 Other long term (current) drug therapy; Z88.6 Allergy status to analgesic agent; Z88.5 Allergy status to narcotic agent
CPT/HCPCS: 74176; 80053; 81001; 83605; 83690; 85025; 96374; 96375; 99285; J2270; J2405; J7030

== ENCOUNTER 2017-03-08 05:27 | Inpatient (IN) | payer MEDICARE ==
[~2017-03-08] VITALS: Ht 168.9 cm; Wt 92.8 kg
[~2017-03-08 05:27] MED LIST changes: -PERI8.6T PO
[2017-03-08] MEDS ORDERED: VANCOMYCIN 1,000 MG/NS 250 ML IV SCH ×2 (06:00)
[2017-03-08] MEDS ORDERED: CHLORHEXIDINE GLUCONATE 2 % 1 PACK (2 CLOTHS) TOPICAL PRN (06:00)
[2017-03-08] MEDS ORDERED: SODIUM CHLORID 0.9% 500 ML IV PRN (06:00)
[2017-03-08] MEDS ORDERED: METOPROLOL TARTRATE 25 MG TAB PO PRN (06:00)
[2017-03-08] MEDS ORDERED: POVIDONE IODINE 5% (ANTISEPSIS KIT) 4 APPLICATIONS EACH NARE PRN (06:00)
[2017-03-08] MEDS ORDERED: ceFAZolin 1,000 MG/NS 100 ML IV SCH ×2 (06:00)
[2017-03-08] MEDS ORDERED: LACTATED RINGER'S 1000 ML IV PRN (06:00)
[2017-03-08] MEDS ORDERED: ACETAMINOPHEN 1000 MG/100 ML 100 ML IV SCH (06:30)
[2017-03-08] MEDS ORDERED: VITA100064 PO (06:34)
[2017-03-08] MEDS ORDERED: B-12100T PO (06:34)
[2017-03-08] MEDS ORDERED: MULT-65 PO (06:34)
[2017-03-08] MEDS ORDERED: VITA250T3 PO (06:34)
[2017-03-08] MEDS ORDERED: VITA100T65 PO (06:34)
[2017-03-08] MEDS ORDERED: CALC250T PO (06:34)
[2017-03-08 06:47] LABS: AUTOMATED NEUTROPHIL # 5.3 TH/MM3 (1.8-7.7); BASOPHIL # 0.1 TH/MM3 (0-0.2); BASOPHIL % 0.9 % (0.0-2.0); EOSINOPHIL # 0.4 TH/MM3 (0-0.4); EOSINOPHIL % 4.5 % (0.0-4.0); HEMATOCRIT 38.9 % (35.0-46.0); HEMOGLOBIN 12.9 GM/DL (11.6-15.3); LYMPH % 24.1 % (9.0-44.0); MEAN CELL VOLUME 88.2 FL (80.0-100.0); MEAN CORPUSCULAR HEMOGLOBIN 29.4 PG (27.0-34.0); MEAN CORPUSCULAR HGB CONC 33.3 % (32.0-36.0); MEAN PLATELET VOLUME 7.9 FL (7.0-11.0); MONO % 7.4 % (0.0-8.0); MONOCYTE # 0.6 TH/MM3 (0-0.9); NEUT % 63.1 % (16.0-70.0); PLATELET COUNT 280 TH/MM3 (150-450); RED CELL DISTRIBUTION WIDTH 14.3 % (11.6-17.2); WHITE BLOOD COUNT 8.4 TH/MM3 (4.0-11.0)
[2017-03-08 06:54] LABS: BICARBONATE 26.4 MEQ/L (21.0-32.0); CALCIUM 8.1 MG/DL (8.5-10.1); CREATININE 0.69 MG/DL (0.50-1.00)
[2017-03-08] MEDS ORDERED: BUPIVACAINE/EPINEPHRINE 0.25% 50 ML VIAL ONE (06:56)
[2017-03-08] MEDS ORDERED: NALOXONE HCL 0.4 MG/ML AMP IV PUSH PRN (11:15)
[2017-03-08] MEDS ORDERED: MAGNESIUM HYDROXIDE SUSP 30 ML CUP PO PRN (11:15)
[2017-03-08] MEDS ORDERED: ACETAMINOPHEN/HYDROcodone 325 MG/5 MG TAB PO PRN (11:15)
[2017-03-08] MEDS ORDERED: diphenhydrAMINE HCL 50 MG/ML VIAL IVP PRN (11:15)
[2017-03-08] MEDS ORDERED: Post-op Orders (for Pharmacy) XX ONE (11:15)
--- NOTE | 2017-03-08 11:19 | HHI.PR ---
cc: Tony Curran MD; Kat Andrade MD Immediate Post Op Note Procedure Date: Mar 08, 2017 Pre Op Diagnosis: Incisional hernia, symptomatic Post Op Diagnosis: Same Surgeon: Tony Curran Screen Roller(s): ROMIE Avalos Procedure: Laparoscopic lysis of adhesions Laparoscopic repair of incisional hernia Findings: Omentum adhesed to anterior abdominal wall Complications: None Specimen(s) removed: None Estimated blood loss: 20 ml Anesthesia: General Drains: None IVF (1400 ml) Patient to: PACU Patient Condition: Good Date/Time of Procedure: SEE SURGICAL CARE RECORD Tony Curran MD Mar 08, 2017 11:19
[2017-03-08] MEDS ORDERED: DO NOT ADM ANY ANTICOAGULANT DRUGS PRN (11:30)
[2017-03-08] MEDS ORDERED: *morphine SULFATE 4 MG/ML PERIprocedure ONLY ONE ×2 (11:31→11:46)
[2017-03-08] MEDS: D5-NS + KCL 20 MEQ INJ 1,000 ML IV SCH ×2 (11:45→19:48)
[2017-03-08] MEDS ORDERED: DIMETHICONE/OXYBENZONE/PADMIATE LIP BALM 4.25 GM TOPICAL ONE (11:46)
[2017-03-08] MEDS: MORPHINE SULFATE 30 MG/30 ML PCA IV SCH (11:51)
[2017-03-08] MEDS ORDERED: ROCURONIUM INJ 50 MG/5 ML SYRINGE IV PUSH ONE (12:00)
[2017-03-08] MEDS ORDERED: NEOSTIGMINE 5 MG/5 ML SYRINGE IV PUSH ONE (12:00)
[2017-03-08] MEDS ORDERED: ONDANSETRON HCL 4 MG/2 ML VIAL IV PUSH ONE ×2 (12:00→22:30)
[2017-03-08] MEDS ORDERED: GLYCOPYRROLATE 1 MG/5 ML SYRINGE IV PUSH ONE (12:00)
[2017-03-08] MEDS ORDERED: LACTATED RINGER'S 1000 ML INJ 1,000 ML IV ONE (12:00)
[2017-03-08] MEDS ORDERED: DEXAMETHASONE SOD PHOS 4 MG/ML VIAL IV ONE (12:00)
[2017-03-08] MEDS ORDERED: LIDOCAINE HCL 1% PF 5 ML SYRINGE OTHER ONE (12:00)
[2017-03-08] MEDS ORDERED: PROPOFOL 200 MG/20 ML AMP IV ONE (12:00)
[2017-03-08 13:54] VITALS: BP 155/72; PULSE 72; RESP 17; TEMP 97.2; O2SAT 91
[2017-03-08] MEDS ORDERED: DIMETHICONE/OXYBENZONE/PADMIATE LIP BALM 4.25 GM TOPICAL PRN (15:00)
[2017-03-08] MEDS: PCA - TOTAL MG MORPHINE DELIVERED PER SHIFT SCH ×2 (15:29→22:09)
[2017-03-08 16:00] VITALS: BP 143/70; PULSE 80; RESP 17; TEMP 95.4; O2SAT 95
[2017-03-08 20:00] VITALS: BP 137/69; PULSE 71; RESP 18; TEMP 98.5; O2SAT 93
[2017-03-08] MEDS ORDERED: ONDANSETRON HCL 4 MG/2 ML VIAL IV PUSH PRN (22:30)
[2017-03-09] VITALS (8 sets, daily range): BP systolic 119–165; BP diastolic 58–72; PULSE 73–89; RESP 18–21; TEMP 97.8–99.5; O2SAT 91–96
[2017-03-09] MEDS: D5-NS + KCL 20 MEQ INJ 1,000 ML IV SCH ×3 (03:53→17:24)
[2017-03-09] MEDS: PCA - TOTAL MG MORPHINE DELIVERED PER SHIFT SCH ×3 (06:02→22:00)
[2017-03-09 07:30] LABS: BICARBONATE 25.9 MEQ/L (21.0-32.0); CALCIUM 7.6 MG/DL (8.5-10.1); CREATININE 0.7 MG/DL (0.50-1.00)
[2017-03-09] MEDS: ENOXAPARIN SODIUM 40 MG/0.4 ML SYRINGE SQ SCH (09:02)
[2017-03-09] MEDS: MORPHINE SULFATE 30 MG/30 ML PCA IV SCH (10:06)
--- NOTE | 2017-03-09 12:03 | MP ---
cc: JT AMBROSIO M.D. DATE OF SURGERY: 03/08/2017 PROCEDURE 1. Laparoscopic lysis of adhesions. 2. Laparoscopic repair of incarcerated incisional hernia, symptomatic. PREOPERATIVE DIAGNOSIS Incarcerated incisional hernia. POSTOPERATIVE DIAGNOSIS: Incarcerated incisional hernia. ANESTHESIA: General endotracheal SURGEON Magdy ESTIMATED BLOOD LOSS 20 mls FLUIDS: 1400 mls crystalloid COMPLICATIONS None. DRAINS: None SPECIMEN None PROCEDURE IN DETAIL The patient was taken to the operating room and placed on the operating table in the supine position after an adequate level of general endotracheal anesthesia was achieved. The abdomen was prepped and draped in usual fashion. Time-out was taken confirming the correct patient site and procedure to be performed. The patient had [place] dressing, with the sterile prep and drape. Incision was made in the left upper quadrant and carried down through the fascia sharply. The peritoneal cavity was directly visualized. A 12 mm balloon trocar was inserted and the balloon inflated. The abdomen was insufflated. A 5 mm 30 degrees laparoscope was inserted. The patient was noted to have some adhesions in the left lateral abdomen as well as around the hernia site. A 5-mm trocar was placed in the left lower quadrant under direct vision and utilized to lyse adhesions so that a left lower quadrant trocar could be placed. Adhesions were taken down sharply with the julio and minimal use of electrocautery. When this has been completed the hernia was able to be reduced by pulling down on the omental tissue that was adhered to the defect. This was completely reduced with both blunt dissection and use of the Endo julio with the cautery. When this had been completed, the falciform ligament was taken down as well and the fatty tissue comprising the falciform ligament was then taken down so as not to compromise the repair. When this was completed the omentum that had been taken down was examined and seen to be completely hemostatic. The defect was measured and a 15 x 19 cm cortex 1 mm dual mesh was chosen to cover the defect which was approximately 5 x 6 cm in size. Prior to placement of the Minto-Ino dual mesh, a barbed zero Stratafix nonabsorbable suture was utilized to close the defect down. A running suture was placed in two layers to close down the defect and minimize seroma formation. The mesh was brought up and four Minto sutures were placed opposite from each other. The mesh was rolled up and placed into the abdominal cavity. The mesh was unrolled and the four sutures were utilized to tack the mesh to the anterior abdominal wall. When this had been completed the mesh was placed at four points and then tacked around the margins with the Capture tacker. Following this four additional 0- Minto sutures were placed between the previously placed sutures to further secure the mesh. When this was completed, insufflation was discontinued. The trocars were removed under direct vision. No bleeding was noted from the trocar sites. 0 Vicryl was used to close the fascia in two layers at the left upper quadrant trocar site. The skin was closed at each of the 5-mm trocar sites and the 12 mm trocar site with 4-0 Vicryl in an interrupted buried fashion. All wounds were dressed with Steri-Strips and a binder applied before extubation. The patient was extubated and then taken back to the recovery room in stable condition. She tolerated the procedure well. MD RAYMOND Guerrero/aleida /11:18 AM /11:46 AM MARTIN
--- NOTE | 2017-03-09 15:45 | HHI.PR ---
Subjective Subjective Notes Had some emesis last night; better today after zofran Tolerating some liquids Objective Vitals/I&O Vital Signs Date Time Temp Pulse Resp B/P (MAP) Pulse Ox O2 Delivery O2 Flow Rate FiO2 03/09/17 12:23 17 03/09/17 12:00 99.2 80 119/59 (79) 96 03/08/17 13:15 Nasal Cannula 2 Labs Laboratory Tests Test 03/09/17 04:34 Blood Urea Nitrogen 8 Creatinine 0.70 Random Glucose 90 Calcium Level 7.6 Sodium Level 142 Potassium Level 4.0 Chloride Level 109 Carbon Dioxide Level 25.9 Anion Gap 7 Estimat Glomerular Filtration Rate 81 Lungs: Clear Abdomen: Non-distended, Post-op tenderness Narrative Exam Steristrips with minimal drainage A/P Assessment and Plan Assessment: POD #1 Lap incisional hernia repair with [place] dualmesh Stable, doing well Plan: 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 Tony Curran MD Mar 09, 2017 15:45
[2017-03-10] VITALS (11 sets, daily range): BP systolic 123–151; BP diastolic 60–66; PULSE 18–84; RESP 16–20; TEMP 98.1–100.2; O2SAT 91–93
[2017-03-10] MEDS: D5-NS + KCL 20 MEQ INJ 1,000 ML IV SCH ×3 (00:32→23:47)
[2017-03-10] MEDS: PCA - TOTAL MG MORPHINE DELIVERED PER SHIFT SCH ×3 (04:45→19:53)
[2017-03-10] MEDS: ENOXAPARIN SODIUM 40 MG/0.4 ML SYRINGE SQ SCH (09:00)
[2017-03-10] MEDS: ACETAMINOPHEN/HYDROcodone 325 MG/5 MG TAB PO PRN ×4 (11:37→23:47)
[2017-03-10] MEDS: MORPHINE SULFATE 30 MG/30 ML PCA IV SCH (12:13)
--- NOTE | 2017-03-10 12:15 | HHI.PR ---
Subjective Subjective Notes More comfortable today Minimal flatus; no BM yet Starting on PO pain meds today Objective Vitals/I&O Vital Signs Date Time Temp Pulse Resp B/P (MAP) Pulse Ox O2 Delivery O2 Flow Rate FiO2 03/10/17 11:49 17 03/10/17 10:19 92 03/10/17 08:00 98.6 18 133/60 (84) 03/08/17 13:15 Nasal Cannula 2 Lungs: Clear Abdomen: Non-distended Narrative Exam Steristrips with minimal drainage A/P Problem List: (1) Incisional hernia of anterior abdominal wall without obstruction or gangrene ICD Codes: K43.2 - Incisional hernia without obstruction or gangrene Assessment and Plan Assessment: POD #2 Lap incisional hernia repair with [place] dualmesh Stable, doing well Plan: Continue SECURITY SME today; stop in AM Continue IVF for now; decrease rate to 75 ml/hr Await return of bowel function Expect 2-3 more day stay. Tony Curran MD Mar 10, 2017 12:15
[2017-03-11] VITALS (7 sets, daily range): BP systolic 109–147; BP diastolic 57–74; PULSE 66–82; RESP 17–20; TEMP 96.7–99.9; O2SAT 91–93
[2017-03-11] MEDS: ACETAMINOPHEN/HYDROcodone 325 MG/5 MG TAB PO PRN ×4 (04:54→20:33)
[2017-03-11] MEDS: PCA - TOTAL MG MORPHINE DELIVERED PER SHIFT SCH (04:56)
[2017-03-11] MEDS: ENOXAPARIN SODIUM 40 MG/0.4 ML SYRINGE SQ SCH (10:34)
[2017-03-11] MEDS ORDERED: MAGNESIUM HYDROXIDE SUSP 30 ML CUP PO ONE (11:00)
[2017-03-11] MEDS ORDERED: BISACODYL 10 MG SUPP RECTAL ONE (11:00)
--- NOTE | 2017-03-11 16:12 | HHI.PR ---
Subjective Subjective Notes Resting in bed No issues PO pain medication working Objective Vitals/I&O Vital Signs Date Time Temp Pulse Resp B/P (MAP) Pulse Ox O2 Delivery O2 Flow Rate FiO2 03/11/17 12:00 92 03/11/17 12:00 98.2 82 20 147/68 (94) 03/10/17 21:44 21 03/08/17 13:15 Nasal Cannula 2 Cardiovascular: Regular Lungs: Clear Abdomen: Other (lap sites c/d/i; binder in place ), Post-op tenderness Extremities: No edema A/P Problem List: (1) Incisional hernia of anterior abdominal wall without obstruction or gangrene ICD Codes: K43.2 - Incisional hernia without obstruction or gangrene Assessment and Plan 76 year old female POD3 Lap incisional hernia repair with [place] dualmesh -Advance to regular diet -[place] for pain -OOB and mobilize -Lovenox -Supp and MOM today Attending Note - Dr. Curran Await return of bowel function Steri-strips remain dry The exam, history, and the medical decision-making described in the above note were completed with the assistance of the mid-level provider. I reviewed and agree with the findings presented. I attest that I had a [id number] encounter with the patient on the same day, and personally performed and documented my assessment and findings in the medical record. Xochilt Whitney Mar 11, 2017 16:12 Tony Curran MD Mar 12, 2017 19:57
[2017-03-12] VITALS: BP 120/58; PULSE 69; RESP 18; TEMP 97.2; O2SAT 93
[2017-03-12 08:00] VITALS: BP 160/68; PULSE 78; RESP 21; TEMP 97.9; O2SAT 95
[2017-03-12] MEDS ORDERED: MAGNESIUM HYDROXIDE SUSP 30 ML CUP PO ONE (09:00)
[2017-03-12] MEDS: ENOXAPARIN SODIUM 40 MG/0.4 ML SYRINGE SQ SCH (10:00)
[2017-03-12] MEDS ORDERED: HYDR-3516 PO (10:17)
--- NOTE | 2017-03-12 11:15 | HHI.DS ---
Discharge Summary Admission Date Mar 08, 2017 at 11:14 Discharge Date: Mar 12, 2017 Admitting Diagnosis (1) Incisional hernia of anterior abdominal wall without obstruction or gangrene ICD Codes: K43.2 - Incisional hernia without obstruction or gangrene Brief History 76 year old female s/p Lap incisional hernia repair with [place] dualmesh CBC/BMP: 03/08/17 0620 03/09/17 0434 PE at Discharge Alert and awake Cardio: RRR Resp: CTAb Steristrips with minimal drainage; abdomen soft Hospital Course 76 year old female s/p Lap incisional hernia repair with [place] dualmesh. His diet was advanced as tolerated. Pain was controlled using oral pain medication. She will follow-up in the office on as indicated on the discharge information. Pt Condition on Discharge: Good Discharge Disposition: Discharge Home Discharge Instructions DIET: Follow Instructions for: As Tolerated, No Restrictions Activities you can perform: See Additionl Instruction Other Activity Instructions: Okay to shower; pat incisions dry Avoid heavy pushing pulling or lifting Xochilt Whitney Mar 12, 2017 11:15
== END 2017-03-12 11:50 | disposition home or self-care (01) | DRG 355 ==
LOC: HSDC 05:27 → HSDI 11:14 → N07B 13:47
PROVIDERS: ADMIT Surgery Trauma Surgery; ATTEND Surgery Trauma Surgery
PROC: 0WUF4JZ Supplement Abdominal Wall with Synthetic Substitute, Percutaneous Endoscopic Approach (ICD-10-PCS; principal; 2017-03-08 07:55)
DX: K43.0 Incisional hernia with obstruction, without gangrene (principal); R11.10 Vomiting, unspecified
CPT/HCPCS: 80048; 85025; 94150; C1781; J0131; J0690; J1100; J1650; J2270; J2405; J2710; J3010; J3370; J3480; J7050; J7120

== ENCOUNTER 2017-07-05 02:59 | Emergency (ER) | payer MEDICARE ==
[~2017-07-05] VITALS: Ht 167.6 cm; Wt 90.7 kg
[~2017-07-05 02:59] MED LIST changes: +B-12100T PO; +CALC250T PO; -CYCL5TAB PO; -HYDR-3288 PO; +HYDR-3516 PO; -MELO7.5T27 PO; +MULT-65 PO; +VITA100064 PO; +VITA100T65 PO; +VITA250T3 PO; -ZOFR4TAB3 SL
[2017-07-05 03:04] VITALS: BP 140/84; PULSE 73; RESP 18; TEMP 98.6; O2SAT 95
--- NOTE | 2017-07-05 03:34 | PD ---
HPI Chief Complaint: Cold / Flu Symptoms Time Seen by Provider: 03:27 Travel History International Travel<30 days: No Contact w/Intl Traveler<30days: No Traveled to known affect area: No History of Present Illness HPI 77-year-old female patient presents to the ER today, states that she has had 2 days history of throat discomfort and coughing. She states her had some similar symptoms last week as well. She denies any fevers, chest pains, shortness of breath, or other symptoms. She states that she has had history of a pneumonia in the past and is concerned that she could have a pneumonia again. Modifying Factors: None Associated Signs & Symptoms: Coughing for 2 days, throat irritation Risk Factors: Sick contact PFSH Past Medical History Arthritis: Yes (bilateral knees) Heart Rhythm Problems: Yes (HX MURMUR) Cancer: No Cardiac Catheterization: No Cardiovascular Problems: No High Cholesterol: Yes Congestive Heart Failure: No Diabetes: No Diminished Hearing: No Endocrine: No Gastrointestinal Disorders: Yes Genitourinary: No Hepatitis: No Hiatal Hernia: Yes (hernia repair) Hypertension: No Immune Disorder: No Implanted Vascular Access Dvce: Yes Musculoskeletal: Yes (BILATERAL KNEES, LEFT SHOULDER) Neurologic: No Psychiatric: No Reproductive: No Respiratory: No Thyroid Disease: No Past Surgical History Abdominal Surgery: Yes (LAP CHOLY) AICD: No Body Medical Devices: NONE Cardiac Surgery: No Cholecystectomy: Yes Coronary Artery Bypass Graft: No Ear Surgery: No Endocrine Surgery: No Eye Surgery: No Hysterectomy: Yes Joint Replacement: Yes (bilateral knee replacement, L shoulder) Oral Surgery: Yes (TONSILECTOMY) Pacemaker: No Thoracic Surgery: No Other Surgery: Yes Social History Alcohol Use: No Tobacco Use: No Substance Use: No Allergies-Medications (Allergen,Severity, Reaction): Coded Allergies: oxycodone (Unverified Allergy, Severe, VOMITING, 03/08/17) Uncoded Allergies: ANESTHETIC THAT STARTS WITH A P (Allergy, Severe, 08/08/11) epidural (Allergy, Severe, 12/03/16) Reported Meds & Prescriptions Reported Meds & Active Scripts Active Hydrocodone-Acetamin 5-325 mg (Hydrocodone/Acetaminophen) 5 Mg-325 Mg Tablet 1- 2 Tab PO Q4H PRN Reported Vitamin E 100 Unit Tab 100 Units PO DAILY Vitamin D3 (Cholecalciferol) 1,000 Unit Tab 1,000 Units PO DAILY Vitamin C (Ascorbic Acid) 250 Mg Tab 250 Mg PO Calcium Citrate 250 Mg Calcium Tab 250 Mg PO B-12 (Cyanocobalamin) 100 Mcg Tab 100 Mcg PO DAILY Multi-Vitamin Daily (Multiple Vitamin) 1 Tab Tab 1 Tab PO DAILY Review of Systems Except as stated in HPI: all other systems reviewed are Neg Physical Exam Narrative GENERAL: Well-developed elderly female patient currently not in acute distress. Awake and oriented 3. SKIN: Focused skin assessment warm/dry. HEAD: Atraumatic. Normocephalic. EYES: Pupils equal and round. No scleral icterus. No injection or drainage. ENT: No nasal bleeding or discharge. Mucous membranes pink and moist. NECK: Trachea midline. No JVD. CARDIOVASCULAR: Regular rate and rhythm. No murmur appreciated. RESPIRATORY: No accessory muscle use. Clear to auscultation. Breath sounds equal bilaterally. GASTROINTESTINAL: Abdomen soft, non-tender, nondistended. Hepatic and splenic margins not palpable. MUSCULOSKELETAL: No obvious deformities. No clubbing. No cyanosis. No edema. NEUROLOGICAL: Awake and alert. No obvious cranial nerve deficits. Motor grossly within normal limits. Normal speech. PSYCHIATRIC: Appropriate mood and affect; insight and judgment normal. Data Data Last Documented VS Vital Signs Date Time Temp Pulse Resp B/P (MAP) Pulse Ox O2 Delivery O2 Flow Rate FiO2 07/05/17 04:36 69 16 137/72 (93) 94 Room Air 07/05/17 03:04 98.6 Orders Orders Chest, Single Ap (07/05/17 03:27) Albuterol-Ipratropium Neb (Duoneb Neb) (07/05/17 03:45) [facility] Medical Decision Making Medical Screen Exam Complete: Yes Emergency Medical Condition: Yes Medical Record Reviewed: Yes Differential Diagnosis URI versus bronchitis versus pneumonia Narrative Course Chest x-ray did not show any signs of significant pneumonia. Symptoms are most indicative of URI. Her also has had some similar symptoms. At this point, my plan would be to release her with follow-up to primary care doctor. Return for worsening in symptoms as necessary. The plan has been discussed with her and she states understanding. Diagnosis Primary Impression: Upper respiratory infection Med/Other Pt SpecificInfo: Prescription(s) given Scripts Benzonatate (Tessalon Perles) 100 Mg Cap 100 MG PO TID Y for COUGH, #15 CAP 0 Refills Prov: Mirela Peña MD 07/05/17 Disposition: 01 DISCHARGE HOME Condition: Stable Mirela Peña MD July 05, 2017 03:34
[2017-07-05] MEDS ORDERED: RESP: ALBUTEROL 2.5 MG/IPRATROPIUM 0.5 MG NEB (SCH) INH ONE (03:45)
[2017-07-05 04:36] VITALS: BP 137/72; PULSE 69; RESP 16; O2SAT 94
[2017-07-05] MEDS ORDERED: BENZ100 PO (05:03)
--- NOTE | 2017-07-05 05:12 | RADRPT ---
EXAM DATE/TIME: 07/05/2017 03:40 [facility] COMPARISON: CHEST SINGLE AP, November 06, 2016, 12:52. INDICATIONS : Shortness of breath for 24 hours MEDICAL HISTORY : None. SURGICAL HISTORY : Left shoulder repair ENCOUNTER: Initial ACUITY: 1 day PAIN SCORE: 0/10 LOCATION: Bilateral chest FINDINGS: A single view of the chest demonstrates the lungs to be symmetrically aerated without evidence of mas s, infiltrate or effusion. The cardiomediastinal contours are unremarkable. Osseous structures are intact. CONCLUSION: No acute disease. Noe Suarez MD on July 05, 2017 at 5:11 Board Certified Radiologist. This report was verified electronically.
== END 2017-07-05 05:28 | disposition home or self-care (01) ==
LOC: PHED 02:59
DX: J06.9 Acute upper respiratory infection, unspecified (principal); E78.00 Pure hypercholesterolemia, unspecified; M17.0 Bilateral primary osteoarthritis of knee; Z96.653 Presence of artificial knee joint, bilateral
CPT/HCPCS: 71045; 94664; 99283